=== PATIENT | female | born 1970 | race Caucasian/White ===

== ENCOUNTER 2019-01-19 01:36 | Observation (INO) | payer BC ==
[2019-01-19] MEDS ORDERED: Morphine 4 MG/ML VIAL ONE (02:52)
[2019-01-19] MEDS ORDERED: Labetalol HCl 100 MG/20 ML VIAL ONE (02:52)
[2019-01-19] MEDS ORDERED: Acetaminophen 325 MG TAB ONE (03:13)
[2019-01-19 05:02] VITALS: BMI 52.4
[2019-01-19] MEDS ORDERED: Ondansetron ODT 4 MG TAB SL PRN (05:06)
[2019-01-19] MEDS ORDERED: Ondansetron PF 4 MG/2 ML Vial IVP PRN ×2 (05:06→11:23)
[2019-01-19] MEDS ORDERED: Acetaminophen 325 MG TAB PO PRN ×2 (05:06→11:23)
[2019-01-19] MEDS ORDERED: Lactated Ringer's 1,000 ML IV SCH (05:15)
[2019-01-19] MEDS: Labetalol HCl 100 MG/20 ML VIAL SLOW IVP SCH ×2 (06:29→12:41)
[2019-01-19 07:53] LABS: Troponin I Less than 0.010 ng/mL (< 0.028)
--- NOTE | 2019-01-19 09:26 | CT ---
PRELIMINARY REPORT/[facility]/EMERGENCY AFTER HOURS PROCEDURE: PROCEDURE INFORMATION: Exam: CT Head Without Contrast Exam date and time: 01/19/2019 3:35 AM Age: 48 years old Clinical history: Patient HX: 48 yo obese white F presents from [place] a transfer for chest pain and HTN. PT reports L sided dull burning chest pain since that is intermittent. PT reports the pain lasts longer when she is anxious. She reports right ear pain, headache, and 3 loose stools t marquez. TECHNIQUE: Imaging protocol: Computed tomography of the head without contrast. COMPARISON: No relevant prior studies available. FINDINGS: Brain: Normal. No hemorrhage. Unremarkable white matter. No mass effect. Ventricles: Normal. No ventriculomegaly. Bones/joints: Unremarkable. No acute fracture. Sinuses: Visualized sinuses are unremarkable. No fluid levels. Mastoid air cells: Visualized mastoid air cells are well aerated. Soft tissues: Unremarkable. IMPRESSION: No acute intracranial hemorrhage. Thank you for allowing us to participate in the care of your patient. Dictated and Authenticated by: Alexander Krueger MD 01/19/2019 3:42 AM Central Time ([place] & [place]) FINAL REPORT EMERGENT AFTER HOURS CT OF BRAIN PERFORMED WITHOUT CONTRAST ENHANCEMENT: HISTORY: Hypertension, headache. The ventricular and cisternal system is within normal limits. There are no signs of intracerebral he morrhage or extraaxial fluid collections. Mastoid air cells and visualized sinuses are clear. IMPRESSION: 1. No acute intracranial abnormalities. 2. This report is in agreement with the temporary report issued by [facility]. POS: [facility]
[2019-01-19] MEDS ORDERED: Senokot S 8.6-50 MG TAB PO PRN (11:23)
[2019-01-19] MEDS ORDERED: Nitroglycerin 0.4 MG TAB (25 Tab Bottle) PO PRN (11:23)
[2019-01-19] MEDS ORDERED: Sodium Chloride 0.9% 1,000 ML IV SCH (11:23)
[2019-01-19] MEDS ORDERED: Calcium Carbonate 500 MG ChewTAB PO PRN (11:23)
[2019-01-19] MEDS ORDERED: Bisacodyl 10 MG SUPP PR PRN (11:23)
[2019-01-19] MEDS ORDERED: Guaifenesin DM 100-10/5 ML UDCUP PO PRN (11:23)
[2019-01-19 12:23] LABS: Hemoglobin A1c 5.7 % (4.0-6.0)
--- NOTE | 2019-01-19 13:04 | CT ---
CT CHEST WITHOUT CONTRAST CLINICAL INDICATION: Pleuritic chest pain. COMPARISON: CTA chest on 10/30/2012. FINDINGS: Aorta: Limited evaluation without IV contrast, but the thoracic aorta is normal in caliber. Lungs: Minimal dependent atelectasis is present at each lung base. Calcified granuloma is seen in the left lower lobe. No consolidation or pleural effusion is seen. An approximately 4 mm pulmonary nodule is seen in the right lower lobe which is too small to characterize. No other additional discre te pulmonary nodule or mass is seen. Mediastinum: Limited evaluation without IV contrast, but no enlarged lymph nodes are appreciated. Thyroid gland: Grossly normal nonenhanced CT appearance. Osseous structures: Scattered mild degenerative changes are seen in the thoracic spine. Chest wall: No abnormality visualized. Upper abdomen: Visualized upper abdomen demonstrates grossly normal nonenhanced CT appearance. IMPRESSION: 1. No acute findings. 2. Too small to characterize approximately 4 mm pulmonary nodule right lower lobe.
[2019-01-19] MEDS ORDERED: Benzonatate 100 MG CAP PO SCH (15:00)
[2019-01-19 15:35] VITALS: BP 172/84; TEMP 98.2
--- NOTE | 2019-01-19 15:39 | NM ---
Radionucleotide stress only myocardial perfusion scan with CT attenuation correction and SPECT imagin g HISTORY: Chest pain. FINDINGS: Lexiscan protocol. Heterogeneous uptake of radiotracer throughout the left ventricular myoc ardium. Some breast attenuation, most notably at the apex. No focal perfusion defect reliably demonstrated. QGS analysis of gated SPECT images shows no focal wall motion abnormalities. Ejection fraction calcul ated at 69%. IMPRESSION: Normal myocardial perfusion scan. Normal LVEF.
[2019-01-19] MEDS ORDERED: Regadenoson 0.4 MG/5 ML SYRINGE ONE (16:10)
--- NOTE | 2019-01-19 18:38 | HP ---
This is a same-day admit and discharge summary. REASON FOR ADMISSION: Chest pain. HISTORY OF PRESENTING ILLNESS: The patient gives history of developing chest pain on . This happened after she went from work. She states it is related to stress and it is more retrosternal and was radiating to the back. The chest pains have been coming on every few seconds or so. The patient states if she calms down, the pain goes away. She states she is stressed out because of the coming holidays that she has to cook and the family gathering. She is also stressed because of her work. She has not been sleeping well. This Saturday, she had felt good and this pain did not come back. On Saturday, the pain started again. Finally, she made it to emergency room. Has had postnasal drip and congestion in her sinuses from last 2 months off and on now. She also has a raspy cough, but no expectoration. PAST MEDICAL AND SURGICAL HISTORY: 1. GERD. 2. History of skin abscess. 3. Cardiac catheterization done in 2011, which was normal. 4. Mild hypertension, not on any medication. 5. x1. CURRENT MEDICATIONS: None. ALLERGIES: TO BACTRIM. PERSONAL HISTORY: She chews tobacco. Smokes 3 to 4 cigarettes a day. Does not abuse alcohol or drugs. Lives with her . FAMILY HISTORY: Father at the age of 50. Has had history of spinal meningitis. He had emphysema and MS. Mother of lung cancer at the age of 68 years. CODE STATUS: Full. [id number] is her . REVIEW OF SYSTEMS: CONSTITUTIONAL: Negative for weight loss or gain, ability to conduct usual activities. SKIN: Negative for rash, itching. EYES: Negative for double vision, pain. ENT/MOUTH: Negative for nose bleeding, neck stiffness, pain, tenderness. CARDIOVASCULAR: Negative for palpitations, dyspnea on exertion, orthopnea. RESPIRATORY: Negative for shortness of breath, wheezing, cough, hemoptysis, fever or night sweats. GASTROINTESTINAL: Negative for poor appetite, abdominal pain, heartburn, nausea , vomiting, constipation, or diarrhea. GENITOURINARY: Negative for urgency, frequency, dysuria, nocturia. MUSCULOSKELETAL: Negative for pain, swelling. NEUROLOGIC/PSYCHIATRIC: Negative for anxiety, depression. ALLERGY/IMMUNOLOGIC: Negative for skin rash, bleeding tendency. PHYSICAL EXAMINATION: GENERAL: The patient is a 48-year-old female who is currently not in any acute distress. VITAL SIGNS: Blood pressure 160/108, pulse 70 per minute, respiratory rate 18 per minute, temperature 98.5 degrees Fahrenheit, and saturating 96% on room air. NECK: Supple. No elevated JVD. HEENT: Eyes; extraocular muscles intact. Pupils reacting to light. Oral cavity, mucous membranes are moist. No exudates or congestion. CARDIOVASCULAR SYSTEM: S1 and S2 heard. Regular rhythm. RESPIRATORY SYSTEM: Air entry 2+ bilateral. No rales or rhonchi. ABDOMEN: Soft. Bowel sounds heard. No tenderness, rigidity, or guarding. EXTREMITIES: No peripheral edema or calf tenderness. VASCULAR SYSTEM: Peripheral pulses 2+ bilateral. No ischemic ulcerations or gangrene. CENTRAL NERVOUS SYSTEM: No gross focal deficits noted. The patient is alert, awake, and oriented well. PSYCHIATRIC: The patient's mood is euthymic. No hallucinations or delusions. DIAGNOSTIC STUDIES: IMAGING STUDIES: CT brain done showed no acute intracranial hemorrhage. This was done for headache. CT chest without contrast done shows no acute findings. Nuclear stress test done showed no focal wall motion abnormalities. Ejection fraction was 69%. This was a normal myocardial perfusion scan. LABORATORY RESULTS: HbA1c 5.7, H and H 13 and 41, platelet count 225, and MCV was 97. Troponin x3 negative. BUN 8, creatinine 0.7. Slight elevation in AST and ALT of 85 and 93, alkaline phosphatase within normal limits. Total bilirubin 0.3. DISCHARGE MEDICATIONS: 1. Augmentin 875 mg twice daily for 6 days. 2. Nexium 20 mg p.o. daily. 3. Tessalon Perles 100 mg p.o. three times daily for 5 days. 4. Mucinex 600 mg p.o. twice daily for 10 days. CLINICAL IMPRESSION AND PLAN: The patient will be shortly discharged to home. Nuclear stress test was negative. She has had 3 sets of troponin that were negative. A CT chest done in view of ongoing history of sinus congestion, postnasal drip, and dry coughing spells with history of tobacco chewing and smoking. CT which was negative. Her blood pressures at home have ranged from 120/80 to 120/70 per patient. Likely, she has anxiety with elevated pressures here in the hospital. The patient has been advised to check her blood pressure twice daily for 10 days and follow up with her primary care physician, Dr. Noe in 1 week. She is otherwise hemodynamically stable and will be shortly discharged to home. Please note this is a same admit and discharge summary. Job ID: [id number] MTDD
[2019-01-19] MEDS ORDERED: Metoprolol Tartrate 25 MG TAB PO SCH (21:00)
[2019-01-19] MEDS ORDERED: guaiFENesin ER 600 MG TAB PO SCH (21:00)
[2019-01-20] MEDS ORDERED: Aspirin 325 mg Enteric Coated Tablet PO SCH (09:00)
[2019-01-20] MEDS ORDERED: Enoxaparin Sodium 40 MG/0.4 ML SYRINGE SC SCH (09:00)
== END 2019-01-19 16:29 | disposition home or self-care (01) ==
LOC: ERS 01:36 → 2SW 03:35
PROVIDERS: ADMIT Internal Medicine; ATTEND Internal Medicine
DX: R07.2 Precordial pain (principal); I10 Essential (primary) hypertension; K21.9 Gastro-esophageal reflux disease without esophagitis; F17.210 Nicotine dependence, cigarettes, uncomplicated; F17.220 Nicotine dependence, chewing tobacco, uncomplicated; Z79.899 Other long term (current) drug therapy; Z88.2 Allergy status to sulfonamides
CPT/HCPCS: 36415; 70450; 71250; 78452; 83036; 84484; 93005; 93017; 94640; 96361; 96374; A4353; A9500; G0378; J2270; J2785; J7620

== ENCOUNTER 2019-03-19 14:57 | Emergency (ER) | payer BC ==
[~2019-03-19 14:57] MED LIST: Iopamidol-370 76% 500 ML 1 ML ONE
[2019-03-19 15:26] LABS: #Basophils 0.1 thou/uL (0.0-0.2); #Eosinphils 0.3 thou/uL (0.0-0.7); #Lymphocytes 3.1 thou/uL (1.20-3.40); #Monocytes 0.6 thou/uL (0.11-0.59); #Neutrophils 8.7 thou/uL (1.40-6.50); %Basophils 0.7 % (0.0-1.0); %Lymphocytes 24.4 % (21.0-51.0); %Monocytes 4.6 % (0.0-10.0); %Neutrophils 68.4 % (42.0-75.0); Hemoglobin 13.8 g/dL (12.0-16.0); Mean Corpuscular HGB CONC 32.9 g/dL (32.0-36.0); Mean Corpuscular Hemoglobin 31.7 pg (27.0-31.0); Mean Corpuscular Volume 96.4 fL (78.0-98.0); Mean Platelet Volume 7.1 fL (7.4-10.4); Platelet Count 251 thou/uL (130-400); Red Blood Cell (RBC) Count 4.35 mill/uL (4.20-5.40); White Blood Cell (WBC) Count 12.8 thou/uL (4.8-10.8)
[2019-03-19] MEDS ORDERED: Ketorolac Tromethamine 30 MG/ML VIAL ONE (15:36)
[2019-03-19] MEDS ORDERED: Fentanyl 100 MCG/2 ML VIAL ONE (15:36)
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
[2019-03-19 15:49] LABS: ALT (SGPT) 92 U/L (8-55); AST (SGOT) 73 U/L (5-34); Albumin 3.5 g/dL (3.5-5.0); Alkaline Phosphatase 100 U/L (40-110); Anion Gap 15 mmol/L (10-20); BUN (Urea Nitrogen) 14 mg/dL (7.0-18.7); Bilirubin, Total 0.3 mg/dL (0.2-1.2); Calc. Creatinine Clearance 0 mL/min (70-130); Calcium 8.6 mg/dL (7.8-10.44); Carbon Dioxide 21 mmol/L (22-29); Chloride 105 mmol/L (98-107); Estimated GFR-MDRD 80; Globulin 3.9 g/dL (2.4-3.5); Glucose 150 mg/dL (70-105); Potassium 3.9 mmol/L (3.5-5.1); Protein, Total 7.4 g/dL (6.0-8.3); Sodium 137 mmol/L (136-145)
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
== END 2019-03-19 17:41 | disposition home or self-care (01) ==
LOC: ERS 14:57
DX: S06.0X0A Concussion without loss of consciousness, initial encounter (principal); S50.01XA Contusion of right elbow, initial encounter; S00.83XA Contusion of other part of head, initial encounter; F41.9 Anxiety disorder, unspecified; F32.9 Major depressive disorder, single episode, unspecified; F17.210 Nicotine dependence, cigarettes, uncomplicated; I10 Essential (primary) hypertension; V69.9XXA Occupant (driver) (passenger) of heavy transport vehicle injured in unspecified traffic accident, initial encounter
CPT/HCPCS: 70450; 71045; 72125; 74177; 80053; 85025; 96361; 96374; G0390; J1885; J3010; Q9967